=== PATIENT | female | born 1930 | race Asian ===

== ENCOUNTER 2016-04-22 14:52 | Inpatient (IN) | payer MEDICARE, OTHER ==
[~2016-04-22] VITALS: Ht 152.4 cm; Wt 71.2 kg
[~2016-04-22 14:52] MED LIST: AMLO-147 PO; DENO60DI SQ; OMEP40CA6 PO; PRAV20TA63 PO
[2016-04-22] MEDS ORDERED: ASPIRIN 81 MG TAB PO STA (15:36)
[2016-04-22] MEDS ORDERED: LIDOCAINE/MYLANTA 40 ML BTL PO STA (15:36)
[2016-04-22] MEDS ORDERED: LEVO500T10 PO (15:54)
[2016-04-22 15:55] LABS: BASOPHIL # 0.1 10^3/ul (0.0-0.1); BASOPHILS % 0.5 % (0.0-2.0); EOSINOPHILS % 0.3 % (0.0-7.0); HEMOGLOBIN 15.5 g/dl (12.0-16.0); LYMPHOCYTES # 2.1 10^3/ul (0.8-2.9); LYMPHOCYTES % 23.4 % (15.0-51.0); MEAN CORPUSCULAR HEMOGLOBIN 29.3 pg (29.0-33.0); MEAN CORPUSCULAR HGB CONC 32.9 g/dl (32.0-37.0); MEAN PLATELET VOLUME 6.9 fl (7.4-10.4); MONOCYTE # 0.6 10^3/ul (0.3-0.9); MONOCYTES % 6.1 % (0.0-11.0); NEUTROPHIL # 6.4 10^3/ul (1.6-7.5); NEUTROPHILS % 69.7 % (39.0-77.0); PLATELET COUNT 266 10^3/UL (140-440); RED BLOOD COUNT 5.28 10^6/ul (4.20-5.40); RED CELL DISTRIBUTION WIDTH 13.3 % (11.5-14.5); UNCORRECTED WBC 9.1 10^3/ul (4.8-10.8); WHITE BLOOD COUNT 9.1 10^3/ul (4.8-10.8)
[2016-04-22 15:57] LABS: CONDITION 1
[2016-04-22] MEDS ORDERED: ALBU18HF INHALATION (15:58)
--- NOTE | 2016-04-22 15:58 | RADRPT ---
PROCEDURE: Chest x-ray CLINICAL INDICATION: Focal neurologic deficit TECHNIQUE: Chest single view COMPARISON: None FINDINGS: There is moderate cardiomegaly and atherosclerotic aortic calcification. The pulmonary vessels are normal in caliber. The lungs are clear. The costophrenic angles are sharp. The visualized bony th orax is unremarkable. IMPRESSION: No acute cardiopulmonary disease. Moderate cardiomegaly and atherosclerotic aortic calcification RPTAT: HH .Nasir Alaniz MD, MD Date Time Electronically viewed and signed by .Nasir Alaniz MD, on 04/22/2016 15:58 .W/
[2016-04-22] MEDS ORDERED: MED4DP PO (15:59)
[2016-04-22] MEDS ORDERED: MECLIZINE 12.5 MG TAB PO ONE (16:00)
[2016-04-22 16:04] LABS: CHLORIDE 96 mmol/L (97-110); POTASSIUM 3.4 mmol/L (3.5-5.1); SODIUM 139 mmol/L (135-144)
[2016-04-22 16:05] LABS: INR 0.93; PARTIAL THROMBOPLASTIN TIME 24.4 Sec (25.0-35.0); PROTIME 12.5 Sec (12.2-14.2)
[2016-04-22 16:06] LABS: ALBUMIN/GLOBULIN RATIO 1.11; ALKALINE PHOSPHATASE 94 IU/L (42-121); ANION GAP 19 (8-16); ASPARTATE AMINO TRANSFERASE 37 IU/L (15-46); BILIRUBIN,INDIRECT 0.6 mg/dl (0-1.1); BILIRUBIN,TOTAL 0.6 mg/dl (0.2-1.3); CARBON DIOXIDE 27 mmol/L (21-31); CREATININE 0.65 mg/dl (0.44-1.00); TOTAL PROTEIN 9.5 g/dl (6.1-8.1)
[2016-04-22 16:07] LABS: ALANINE AMINOTRANSFERASE 40 IU/L (13-69); BLOOD UREA NITROGEN 16 mg/dl (7-20); GLUCOSE 110 mg/dl (70-220)
[2016-04-22 16:22] LABS: TROPONIN-I < 0.012 ng/ml (0.00-0.12)
--- NOTE | 2016-04-22 16:53 | RADRPT ---
PROCEDURE: CT Brain without contrast. CLINICAL INDICATION: Neurologic deficit TECHNIQUE: A CT of the brain was performed on multidetector high-resolution CT scanner utilizing a xial sections from the skull base through the vertex without contrast. One or more of the following dose reduction techniques were used: Automated exposure control, Adjustment of the mA and/or kV acc ording to patient size, and/or use of iterative reconstruction technique. DOSE: CTDI = 45 mGy and the DLP = 720 mGy-cm. COMPARISON: Head CT 03/11/2014 FINDINGS: 1.6cm metallic structure at the left occipital condyle is similar to prior. There is resulting in s treak artifact obscuring the foramen magnum. No acute intracranial hemorrhage, significant mass effe ct or midline shift. The lee-white differentiation is grossly preserved. The ventricles are stable size with mild to moderate volume loss noted. No significant opacification of the visualized paranas al sinuses or mastoids. IMPRESSION: No significant interval change identified since 03/11/2014. No acute intracranial abnormality identified. 1.6cm metallic structure at the left occipital condyle is similar to prior. RPTAT: AA .Michael Cordova MD, MD Date Time Electronically viewed and signed by .Michael Cordova MD, MD on 04/22/2016 16:52 .T/
--- NOTE | 2016-04-22 17:06 | ERA ---
ER Documentation Chief Complaint Date/Time DATE: 04/22/16 TIME: 17:00 Chief Complaint PALPITATIONS AND NAUSEA AND VOMITING SINCE LAST NIGHT. DIZZINESS HPI This is an 86-year-old female who complains this morning she developed sudden severe vertigo with nausea vomiting. She says the vertigo gets worse when she moves her head. She says she also this morning developed heaviness to the right lower extremity with some slight tingling. She said her face is not numb or weak but that she was having slurred speech according to her family. The slurred speech is now resolved. Patient says her leg is the same. No upper extremity symptoms. Patient is not sure the time of onset but says it was " this morning ROS All systems reviewed and are negative except as per history of present illness. Medications Home Meds Reported Medications Methylprednisolone* (Medrol* DOSE PACK) 4 Mg/Dose-Pack Tab.ds.pk, 4 MG PO . DIRECTED, PACKET 04/22/16 Albuterol Sulfate* (Ventolin HFA*) 18 Gm Hfa.aer.ad, 2 PUFF INHALATION Q4H, #1 INHALER 04/22/16 Levofloxacin* (Levofloxacin*) 500 Mg Tablet, 500 MG PO Q24H, TAB FOR 7 DAYS 04/22/16 Discontinued Reported Medications Amlodipine Besylate* (Amlodipine Besylate*) 10 Mg Tablet, 10 MG PO DAILY, TAB 03/11/14 Pravastatin Sodium* (Pravastatin Sodium*) 20 Mg Tablet, 20 MG PO HS, TAB 03/11/14 Denosumab (Prolia) 60 Mg/1 Ml Disp.syrin, 60 MG SQ 10/23/12 Omeprazole* (Omeprazole*) 40 Mg Capsule.dr, 40 MG PO 10/23/12 Allergies Allergies: Uncoded Allergies: ACETAMINOPHEN WITH CODEINE (Adverse Reaction, Unknown, 04/22/16) PMhx/Soc History of Surgery: Yes (EMBOLIZATION CRANIAL, CATARACT) Anesthesia Reaction: No Hx Neurological Disorder: No Hx Respiratory Disorders: Yes (Asthma) Hx Cardiac Disorders: No Hx Psychiatric Problems: No Hx Miscellaneous Medical Probl: Yes (Recent pneumonia) Hx Alcohol Use: No Hx Substance Use: No Hx Tobacco Use: No Smoking Status: Never smoker FmHx Family History: No coronary disease Physical Exam Vitals Vital Signs Date Time Temp Pulse Resp B/P Pulse Ox O2 Delivery O2 Flow Rate FiO2 04/22/16 15:47 Nasal Cannula 2 04/22/16 15:00 98.6 67 20 134/65 98 Physical Exam Const: Well-developed, well-nourished Head: Atraumatic, normocephalic Eyes: Normal Conjunctiva, PERRLA, EOMI, normal sclera, no nystagmus ENT: Normal External Ears, Nose and Mouth, moist mucus membranes. Neck: Full range of motion. No meningismus, no lymphadenopathy. Resp: Clear to auscultation bilaterally, no wheezing, rhonchi, rales Cardio: Regular rate and rhythm, no murmurs, S1 S2 present Abd: Soft, non tender x 4, non distended. Normal bowel sounds, no guarding or rebound, no pulsitile abdominal masses or bruits Skin: No petechiae or rashes, no ecchymosis , no maculopapular rash Back: No midline or flank tenderness Ext: No cyanosis, or edema, FROM x 4, normal inspection, neurovascularly intact x 4 Neur: Awake and alert, STR 5/5 x 4, sensation intact x 4, no focal findings, cerebellum intact, positive Hallpike, subjective heaviness to the right lower extremity with slight increase sensation/tingling Psych: Normal Mood and Affect Result Diagram: 04/22/16 1546 04/22/16 1546 Results 24 hrs Laboratory Tests Test 04/22/16 15:46 Activated Partial Thromboplast Time 24.4Sec Alanine Aminotransferase (ALT/SGPT) 40IU/L Albumin 5.0g/dl Albumin/Globulin Ratio 1.11 Alkaline Phosphatase 94IU/L Anion Gap 19 Aspartate Amino Transf (AST/SGOT) 37IU/L Basophils # 0.110^3/ul Basophils % 0.5% Blood Morphology Comment Blood Urea Nitrogen 16mg/dl Calcium Level 10.0mg/dl Carbon Dioxide Level 27mmol/L Chloride Level 96mmol/L Creatinine 0.65mg/dl Direct Bilirubin 0.00mg/dl Eosinophils # 0.010^3/ul Eosinophils % 0.3% Globulin 4.50g/dl Glucose Level 110mg/dl Hematocrit 47.0% Hemoglobin 15.5g/dl INR International Normalized Ratio 0.93 Indirect Bilirubin 0.6mg/dl Lymphocytes # 2.110^3/ul Lymphocytes % 23.4% Mean Corpuscular Hemoglobin 29.3pg Mean Corpuscular Hemoglobin Concent 32.9g/dl Mean Corpuscular Volume 89.0fl Mean Platelet Volume 6.9fl Monocytes # 0.610^3/ul Monocytes % 6.1% Neutrophils # 6.410^3/ul Neutrophils % 69.7% Nucleated Red Blood Cells # 0.010^3/ul Nucleated Red Blood Cells % 0.0/100WBC Platelet Count 31647^3/UL Potassium Level 3.4mmol/L Prothrombin Time 12.5Sec Prothrombin Time Ratio 1.0 Red Blood Count 5.2810^6/ul Red Cell Distribution Width 13.3% Sodium Level 139mmol/L Total Bilirubin 0.6mg/dl Total Protein 9.5g/dl Troponin I < 0.012ng/ml White Blood Count 9.110^3/ul Current Medications Medications (Trade) Dose Ordered Sig/Bravo Route PRN Reason Start Time Stop Time Status Last Admin Dose Admin Aspirin (Aspirin) 162 mg ONCE STAT PO 04/22/16 15:36 04/22/16 15:38 DC 04/22/16 15:46 Meclizine HCl (Antivert) 25 mg ONCE ONCE PO 04/22/16 16:00 04/22/16 16:01 DC 04/22/16 15:46 Miscellaneous Medication (Gi Cocktail (2)) 40 ml ONCE STAT PO 04/22/16 15:36 04/22/16 15:38 DC 04/22/16 15:46 Procedures/MDM PROCEDURE: CT Brain without contrast. CLINICAL INDICATION: Neurologic deficit TECHNIQUE: A CT of the brain was performed on multidetector high-resolution CT scanner utilizing axial sections from the skull base through the vertex without contrast. One or more of the following dose reduction techniques were used: Automated exposure control, Adjustment of the mA and/or kV according to patient size, and/or use of iterative reconstruction technique. DOSE: CTDI = 45 mGy and the DLP = 720 mGy-cm. COMPARISON: Head CT 03/11/2014 FINDINGS: 1.6cm metallic structure at the left occipital condyle is similar to prior. There is resulting in streak artifact obscuring the foramen magnum. No acute intracranial hemorrhage, significant mass effect or midline shift. The lee- white differentiation is grossly preserved. The ventricles are stable size with mild to moderate volume loss noted. No significant opacification of the visualized paranasal sinuses or mastoids. IMPRESSION: No significant interval change identified since 03/11/2014. No acute intracranial abnormality identified. 1.6cm metallic structure at the left occipital condyle is similar to prior. RPTAT: AA .Michael Cordova MD, MD Date Time Electronically viewed and signed by .Michael Cordova MD, MD on 04/22/2016 16:52 .T/ CC: RONNELL ALBA DO PROCEDURE: Chest x-ray CLINICAL INDICATION: Focal neurologic deficit TECHNIQUE: Chest single view COMPARISON: None FINDINGS: There is moderate cardiomegaly and atherosclerotic aortic calcification. The pulmonary vessels are normal in caliber. The lungs are clear. The costophrenic angles are sharp. The visualized bony thorax is unremarkable. IMPRESSION: No acute cardiopulmonary disease. Moderate cardiomegaly and atherosclerotic aortic calcification RPTAT: HH .Nasir Alaniz MD, Date Time Electronically viewed and signed by .Nasir Alaniz MD, MD on 04/22/2016 15:58 .W/ CC: RONNELL ALBA DO EKG: Rate/Rhythm: Normal sinus rhythm with a first-degree AV block, right bundle branch block QRS, ST, QT: NORMAL VA, prolonged QRS, QT] Impression: Abnormal EKG] Patient's symptoms are consistent with the peripheral vertigo however she has some right leg tingling and heaviness as well as some slurred speech, therefore there is a possibility of a stroke I will admit her for MRI and further stroke workup She is not a TPA candidate due to time of onset and improving symptoms Departure Diagnosis: Primary Impression: CVA (cerebral vascular accident) Qualified Code: I63.9 - Cerebrovascular accident (CVA), unspecified mechanism Condition: RONNELL Hernández DO Apr 22, 2016 17:06
[2016-04-22] MEDS ORDERED: SOD CHLORIDE 0.9% 1,000 ML IV SCH (18:43)
[2016-04-22] MEDS ORDERED: DOCUSATE SODIUM 100 MG CAP PO PRN (19:00)
[2016-04-22] MEDS ORDERED: ACETAMINOPHEN 325 MG TAB PO PRN ×2 (19:00)
[2016-04-22] MEDS ORDERED: NACL 0.9% 3 ML SYG IV SCH (19:00)
[2016-04-22] MEDS ORDERED: ZOLPIDEM 5 MG TAB PO PRN (19:00)
[2016-04-22] MEDS ORDERED: POTASSIUM CHLORIDE 50 ML IVPB SCH (19:00)
[2016-04-22] MEDS ORDERED: ONDANSETRON 4 MG INJ IV PRN ×2 (19:00)
[2016-04-22 19:47] VITALS: PULSE 85; TEMP 98.6
[2016-04-22 21:10] VITALS: BP 146/69; RESP 18
[2016-04-22] MEDS: MECLIZINE 12.5 MG TAB PO SCH (21:30)
[2016-04-22] MEDS: ATENOLOL 25 MG TAB PO SCH (21:30)
[2016-04-22] MEDS: AMLODIPINE 5 MG TAB PO SCH (21:30)
[2016-04-22] MEDS: POTASSIUM CHLORIDE 50 ML IVPB SCH (22:36)
[2016-04-22] MEDS: PANTOPRAZOLE 40 MG INJ IV SCH (22:36)
[2016-04-23] MEDS: POTASSIUM CHLORIDE 50 ML IVPB SCH ×2 (00:31→02:24)
--- NOTE | 2016-04-23 00:43 | HP ---
DATE OF ADMISSION: 04/22/2016 IDENTIFYING DATA: The patient is an 86-year-old female admitted to the hospital with dizziness and vomiting of approximately 10 hours' duration. HISTORICAL EVENTS: The patient had been seen by me in the office on 04/16 when she presented with s ymptoms of asthmatic bronchitis, onset about 10 days ago, and for this she was given Levaquin 500 mg per day, Medrol Dosepak and ProAir inhaler. She felt actually quite better over the last several d ays, was a bit queasy last night and when awakened this morning noted some nausea. She did eat deon kfast, perhaps 30 minutes after breakfast had several episodes of vomiting. Just prior to vomiting, she noted some dizziness and some generalized tingling without pathologic visual symptoms, difficul ty swallowing. No definite headache. She remained nauseated for several hours subsequent and noted some discomfort involving her right thigh and leg as well as low back pain with right SI discomfort that has been problematic perhaps for the last week or two and became somewhat worse this morning. Importantly, her cough and chest congestion markedly improved. She's had no wheezing, fever or chi lls. PRESENT MEDICATIONS: Include: 1. Levaquin 500 mg per day. 2. Medrol Dosepak, having 1 more day to complete. 3. Pravachol 20 mg per day. 4. Atenolol 25 mg per day. 5. Norvasc 10 mg per day. PAST MEDICAL HISTORY: Includes: 1. Hypertension. 2. Hyperlipidemia. 3. 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 4. Stress echo in 07/2013 that was normal. Holter monitor revealed PVCs not sustained. 5. History of osteoporosis. Prolia began in 06/2011. 6. Endoscopy and colonoscopy in 05/2012 that were normal. 7. History of GERD. 8. Microhematuria. Urologic evaluation in 06/2012 was negative. 9. History of a fall in 12/2013. CT scan of the brain was negative as was carotid study in 04/2014 . ALLERGIES OR INTOLERANCES: INCLUDE TRAMADOL. FAMILY HISTORY: Positive for pancreatic cancer. SOCIAL HISTORY: She does not smoke. in 2001. Does not drink alcohol. PHYSICAL EXAMINATION: GENERAL: Anxious female. No acute distress. VITAL SIGNS: BP 128/80, pulse 70, respirations were 20, she was afebrile. EYES: Extraocular muscles were full. No nystagmus was present. NOSE, MOUTH AND THROAT: Normal. NECK: Supple. There was no jugular venous distention, thyroid enlargement, adenopathy. LUNGS: Clear. HEART: Rhythm regular. No murmur. No third or fourth sound. ABDOMEN: Nontender. Liver and spleen were not palpable. No mass or tenderness was noted. EXTREMITIES: No edema, no calf tenderness, no lateralizing motor weakness of her extremities. IMPRESSION: Antecedent dizziness and vomiting may be related to eustachian tube dysfunction. Doubt Levaquin, doubt transient ischemic attack involving the brainstem or cerebellum. PLAN: Aspirin has already been given. Will observe her overnight. Antivert will also be given. M RI of the brain and noninvasive carotid studies to be obtained. Neurology to see tomorrow. Dictated By: ARIS LOPEZ/MICHAEL Conf#: [id number] DID#: [id number]
[2016-04-23] MEDS: 1/2 NS + KCL 20 MEQ 1,000 ML IV SCH ×3 (02:23→23:05)
[2016-04-23 06:18] LABS: POTASSIUM 3.9 mmol/L (3.5-5.1)
[2016-04-23 06:21] LABS: CALCIUM 8.7 mg/dl (8.4-10.2); CREATININE 0.67 mg/dl (0.44-1.00); PHOSPHORUS 3.4 mg/dl (2.5-4.9)
[2016-04-23 06:22] LABS: MAGNESIUM 2.4 mg/dl (1.7-2.5)
[2016-04-23 06:35] LABS: BASOPHILS % 0.6 % (0.0-2.0); EOSINOPHILS % 0.7 % (0.0-7.0); HEMATOCRIT 41.6 % (37.0-47.0); HEMOGLOBIN 14.1 g/dl (12.0-16.0); LYMPHOCYTES # 1.4 10^3/ul (0.8-2.9); LYMPHOCYTES % 23.5 % (15.0-51.0); MEAN CORPUSCULAR HEMOGLOBIN 30.1 pg (29.0-33.0); MEAN CORPUSCULAR HGB CONC 33.7 g/dl (32.0-37.0); MEAN CORPUSCULAR VOLUME 89.1 fl (82.0-101.0); MEAN PLATELET VOLUME 7.1 fl (7.4-10.4); MONOCYTE # 0.5 10^3/ul (0.3-0.9); MONOCYTES % 8.8 % (0.0-11.0); NEUTROPHIL # 4.1 10^3/ul (1.6-7.5); NEUTROPHILS % 66.4 % (39.0-77.0); PLATELET COUNT 231 10^3/UL (140-440); RED BLOOD COUNT 4.67 10^6/ul (4.20-5.40); RED CELL DISTRIBUTION WIDTH 13.3 % (11.5-14.5); UNCORRECTED WBC 6.1 10^3/ul (4.8-10.8); WHITE BLOOD COUNT 6.1 10^3/ul (4.8-10.8)
[2016-04-23 06:56] LABS: CONDITION 1
[2016-04-23] MEDS: PANTOPRAZOLE 40 MG INJ IV SCH ×2 (06:57→17:35)
[2016-04-23 07:30] VITALS: BP 122/57; RESP 18
[2016-04-23] MEDS: AMLODIPINE 5 MG TAB PO SCH ×2 (08:31→21:00)
[2016-04-23] MEDS: MECLIZINE 12.5 MG TAB PO SCH ×3 (08:31→21:15)
[2016-04-23] MEDS: ASPIRIN (EC) 325 MG TAB PO SCH (08:31)
[2016-04-23] MEDS: ATENOLOL 25 MG TAB PO SCH (08:32)
--- NOTE | 2016-04-23 12:54 | PN ---
Date/Time of Note Date/Time of Note DATE: 04/23/16 TIME: 12:45 Assessment/Plan VTE Prophylaxis VTE Prophylaxis Intervention: ambulation Lines/Catheters IV Catheter Type (from Nrs): Saline Lock Assessment/Plan Chief Complaint/Hosp Course 1. Dizziness with nausea and vomiting is better , probably due to vertigo , will continue IV fluids and symptomatic meds . 2. She cannot have an MRI of brain because of brain coil 3. start PT . 4. acute bronchitis resolving . Problems: Subjective 24 Hr Interval Summary Free Text/Dictation She is feeling better today . She could not have MRI of brain because of a coil in her brain . Constitutional: improved, no complaints Cardiovascular: no complaints Gastrointestinal: no complaints Exam/Review of Systems Vital Signs Vitals Vital Signs Date Time Temp Pulse Resp B/P Pulse Ox O2 Delivery O2 Flow Rate FiO2 04/23/16 07:30 97.8 57 18 122/57 96 04/22/16 19:47 Room Air 04/22/16 15:47 2 Intake and Output 04/22/16 04/22/16 04/23/16 15:00 23:00 07:00 Intake Total 920 ml Balance 920 ml Exam Constitutional: alert, oriented, well developed ENMT: nl external ears & nose, nl lips & teeth, nl nasal mucosa & septum Respiratory: clear to auscultation, normal air movement Cardiovascular: regular rate and rhythm Musculoskeletal: nl extremities to inspection Neurological: IRONMOLDER II-XII intact, nl mental status, nl speech, nl strength Results Result Diagram: 04/23/16 0456 04/23/16 0456 Results 24 hrs Laboratory Tests Test 04/22/16 15:46 04/23/16 04:56 Activated Partial Thromboplast Time 24.4 L Alanine Aminotransferase (ALT/SGPT) 40 Albumin 5.0 H Albumin/Globulin Ratio 1.11 Alkaline Phosphatase 94 Anion Gap 19 H 14 Aspartate Amino Transf (AST/SGOT) 37 Basophils # 0.1 0.0 Basophils % 0.5 0.6 Blood Morphology Comment Blood Urea Nitrogen 16 17 Calcium Level 10.0 8.7 Carbon Dioxide Level 27 27 Chloride Level 96 L 101 Creatinine 0.65 0.67 Direct Bilirubin 0.00 Eosinophils # 0.0 0.0 Eosinophils % 0.3 0.7 Globulin 4.50 H Glucose Level 110 94 Hematocrit 47.0 41.6 Hemoglobin 15.5 14.1 INR International Normalized Ratio 0.93 Indirect Bilirubin 0.6 Lymphocytes # 2.1 1.4 Lymphocytes % 23.4 23.5 Mean Corpuscular Hemoglobin 29.3 30.1 Mean Corpuscular Hemoglobin Concent 32.9 33.7 Mean Corpuscular Volume 89.0 89.1 Mean Platelet Volume 6.9 L 7.1 L Monocytes # 0.6 0.5 Monocytes % 6.1 8.8 Neutrophils # 6.4 4.1 Neutrophils % 69.7 66.4 Nucleated Red Blood Cells # 0.0 0.0 Nucleated Red Blood Cells % 0.0 0.0 Platelet Count 266 231 Potassium Level 3.4 L 3.9 Prothrombin Time 12.5 Prothrombin Time Ratio 1.0 Red Blood Count 5.28 4.67 Red Cell Distribution Width 13.3 13.3 Sodium Level 139 138 Total Bilirubin 0.6 Total Protein 9.5 H Troponin I < 0.012 White Blood Count 9.1 6.1 # Magnesium Level 2.4 Phosphorus Level 3.4 Medications Medications Current Medications Potassium Chloride/Sodium Chloride (04/05 NS + KCl 20 Meq) 1,000 ml @ 100 mls/hr Q10H IV Last administered on 04/23/16 09:06; Admin Dose 100 MLS/HR; Start at 22:00 Ondansetron HCl (Zofran Inj) 4 mg Q6H PRN IV NAUSEA AND/OR VOMITING; Start at 19:00 Acetaminophen (Tylenol Tab) 650 mg Q6H PRN PO PAIN LEVEL 1-3 OR FEVER; Start at 19:00 Docusate Sodium (Colace) 100 mg Q12H PRN PO CONSTIPATION; Start 04/22/16 at 19: 00 Meclizine HCl (Antivert) 12.5 mg TID PO ; Start 04/22/16 at 21:30 Pantoprazole (Protonix Iv) 40 mg BID@06,18 IV Last administered on 04/23/16 06 :57; Admin Dose 40 MG; Start 04/22/16 at 21:30 Amlodipine Besylate (Norvasc) 5 mg BID PO ; Start 04/22/16 at 21:30 Atenolol (Tenormin) 25 mg DAILY PO ; Start 04/22/16 at 21:30 Zolpidem Tartrate (Ambien) 5 mg HS PRN PO INSOMNIA; Start 04/22/16 at 19:00 Aspirin (Ecotrin) 325 mg DAILY PO ; Start 04/23/16 at 09:00 REGINO RAHMAN MD Apr 23, 2016 12:54
--- NOTE | 2016-04-23 13:51 | RADRPT ---
PROCEDURE: US Carotids. CLINICAL INDICATION: CVA TECHNIQUE: Multiple sonographic of the carotid arteries were obtained utilizing lee scale imaging . Color and Doppler imaging was performed. The images were reviewed on a PACS workstation. COMPARISON: No prior studies are available for comparison. FINDINGS: Location Right Left CCA 54 cm/sec 61 cm/sec Prox ICA 45 cm/sec 62 cm/sec Mid ICA 59 cm/sec 69 cm/sec Dist ICA 68 cm/sec 78 cm/sec ECA 81 cm/sec 47 cm/sec ICA/CCA 1.3 1.4 Antegrade flow is seen within the vertebral arteries bilaterally. Mild scattered atherosclerotic alesha que is seen within the carotid system bilaterally. No hemodynamically significant stenosis or occlu franca is identified. IMPRESSION: 1. Mild scattered atherosclerotic plaque without evidence for hemodynamically significant stenosis - validated velocity measurements with angiographic measurements, velocity criteria are extrapolated from diameter data as defined by the Society of Radiologists in Ultrasound Consensus Conference Radi ology 2003; 229;340-346. This study does indirectly reference the measurement of the distal ICA kati meter as the denominator for stenosis measurement. 2. Antegrade flow seen within the vertebral arteries bilaterally. SRU Consensus Conference Criteria for the Diagnosis of Carotid Artery Stenosis Degree of Stenosis, % ICA PSV, cm/sec Plaque Estimate, % ICA/CCA PSV Ratio Normal <125 None <2.0 <50 <125 <50 <2.0 50 69 125-230 >50 2.0-4.0 >70 but less than near occlusion >230 >50 <4.0 Near occlusion High, low, or undetectable Visible Variable Total occlusion Undetectable Visible, no detectable lumen Not applicable *Cartoid artery stenosis: lee-scale and Doppler US diagnosis. Society of Radiologists in Ultrasound Consensus Conference. Radiology 2003; 229: 340-346 RPTAT: TT .Marvel Woods MD, Date Time Electronically viewed and signed by .Marvel Woods MD, MD on 04/23/2016 13:51 .A/
--- NOTE | 2016-04-23 16:17 | RADRPT ---
Echocardiogram Report Patient Name: ARUN MCINTYRE Gender: Female Date: 1930 Study Date: 23-Apr-2016 Core Java Software Engineer: [facility] Location: 2265 Ref. Physician: ARIS CHAVEZ Quality: Adequate Procedures: Transthoracic echocardiogram with complete 2D, M-Mode, and doppler examination. Indications: CEREBRAL EMBOLISM. 2D/M Mode Doppler Measurement Value Normal Ranges Measurement Value Normal Ranges LVIDd 2D 3.7 3.5 - 5.6 cm AV Peak Duran 1.4 m/sec LVIDs 2D 2.5 2.1 - 4.1 cm AV Peak PG 8.0 mmHg FS 2D 34.0 % AI Peak PG 35.0 mmHg LVPWd 2D 1.2 0.6 - 1.1 cm AI Peak Duran 3.0 m/sec IVSd 2D 1.1 0.6 - 1.1 cm AI PHT 1097.0 msec IVS/LVPW 2D 0.9 LVOT Peak Duran 0.8 m/sec AoR Diam 2D 3.1 2.0 - 3.7 cm LVOT Peak PG 2.0 mmHg LA/Ao 2D 1 0 - 1 MV E Peak Duran 0.4 m/sec EDV 2D 52.3 cm3 MV A Peak Duran 0.9 m/sec ESV 2D 15.1 cm3 MV E/A 0.4 LA Dimen 2D 3.0 2.3 - 4.0 cm MV Decel Time 215 msec MV E/A 0.4 TR Peak Duran 2.6 m/sec TR Peak PG 27.0 mmHg Findings Left Ventricle: Normal left ventricular systolic function. Normal left ventricular cavity size. Left ventricular wall thickness upper limits of normal. Ejection fraction is visually estimated at 60 %. Tissue Doppler/Mitral Doppler indices are consistent with impaired relaxation (Stage I diastolic dysfunction). Right Ventricle: Normal right ventricular systolic function. Mild enlargement of right ventricle. Left Atrium: The left atrium is normal in size. Right Atrium: Right atrium at upper limits of normal. Mitral Valve: Normal appearance of the mitral valve. Mild mitral annular calcification. Trace mitral regurgitation. Aortic Valve: No hemodynamically significant aortic stenosis by doppler. Aortic cusps appear mildly calcified. Trileaflet aortic valve. Mild aortic valve regurgitation. Tricuspid Valve: Right ventricular systolic pressure is consistent with mild pulmonary hypertension. Estimated peak PA systolic pressure 30 mmHg. There is mild tricuspid regurgitation. Pulmonic Valve: Pulmonic valve not well visualized. There is trace pulmonic regurgitation. Pericardium: Normal pericardium with no significant pericardial effusion. Aorta: Normal aortic root. IVC: Normal size and normal respiratory collapse consistent with normal right atrial pressure. Conclusions Normal left ventricular systolic function. Normal left ventricular cavity size. Left ventricular wall thickness upper limits of normal. Ejection fraction is visually estimated at 60 %. Tissue Doppler/Mitral Doppler indices are consistent with impaired relaxation (Stage I diastolic dysfunction). Normal right ventricular systolic function. Mild enlargement of right ventricle. The left atrium is normal in size. No hemodynamically significant aortic stenosis by doppler. Aortic cusps appear mildly calcified. Trileaflet aortic valve. Mild aortic valve regurgitation. Right ventricular systolic pressure is consistent with mild pulmonary hypertension. Estimated peak PA systolic pressure 30 mmHg. There is mild tricuspid regurgitation. Normal size and normal respiratory collapse consistent with normal right atrial pressure. No Vegetation, masses, or thrombi seen. Electronically Signed By: Praomd Mosher 23-Apr-2016 16:16:47 -0800 Patient Name: ARUN MCINTYRE Study Date: 23-Apr-[id number]
[2016-04-23 20:09] VITALS: BP 117/53; RESP 20
[2016-04-24] MEDS: PANTOPRAZOLE 40 MG INJ IV SCH (04:38)
[2016-04-24] MEDS: 1/2 NS + KCL 20 MEQ 1,000 ML IV SCH (04:39)
[2016-04-24 06:07] LABS: POTASSIUM 4.8 mmol/L (3.5-5.1)
[2016-04-24 06:10] LABS: CREATININE 0.84 mg/dl (0.44-1.00)
[2016-04-24 06:11] LABS: CALCIUM 8.9 mg/dl (8.4-10.2); MAGNESIUM 2.5 mg/dl (1.7-2.5)
[2016-04-24 08:17] VITALS: BP 147/67; RESP 20
[2016-04-24] MEDS: ASPIRIN (EC) 325 MG TAB PO SCH (08:26)
[2016-04-24] MEDS: MECLIZINE 12.5 MG TAB PO SCH ×2 (08:26→12:52)
[2016-04-24] MEDS: ATENOLOL 25 MG TAB PO SCH (08:27)
[2016-04-24] MEDS: AMLODIPINE 5 MG TAB PO SCH ×2 (08:27→21:00)
[2016-04-24] MEDS ORDERED: MECLIZINE 12.5 MG TAB PO PRN (13:30)
[2016-04-24] MEDS ORDERED: PANTOPRAZOLE (EC) 40 MG TAB PO ONE (13:30)
--- NOTE | 2016-04-24 13:46 | PN ---
Date/Time of Note Date/Time of Note DATE: 04/24/16 TIME: 13:34 Assessment/Plan VTE Prophylaxis VTE Prophylaxis Intervention: ambulation, SCD's Lines/Catheters IV Catheter Type (from Nrsg): Peripheral IV Assessment/Plan Chief Complaint/Hosp Course 86 y/o female pmh HTN, HLD, GERD, osteoporosis who was brought to ER from her assisted living 04/22/2016 for recurrent episodes of vomiting and vertigo. Of note she was seen by Dr. Stevenson 04/16 for asthmatic bronchitis and prescribed levaquin 500mg po qday as well as medrol dose pack and inhaler. Since admission patient has been managed supportively. Had contraindication to MRI given brain coil. CT head unchanged from prior. Carotid doppler w/ no clinically significant stenosis. Problems: (1) Vertigo (2) GERD (gastroesophageal reflux disease) (3) Hyperlipidemia (4) Hypertension (5) Right hip pain Assessment/Plan A/P: Neuro #Vertigo-improved. These symptoms were intermittent therefore unlikely central. No hearing loss or tinnitus. Consider vestibular neuritis as part of a viral syndrome. Symptoms are almost resolved. -will change meclizine from ATC to prn -will advance diet and continue to observe today MSK #R hip pain-likely OA vs other MSK. Doesnt hurt when walking. Skin intact -tylenol prn -out of bed as much as possible today GI #GERD -will switch PPI gtt to protonix po qday Cards #HLD -restart pravachol #HTN -norvasc -atenolol Dispo: tentative dc to assisted living tomorrow. PAtient lives alone, would like to ensure that she can tolerate diet and ambulate. Will also attempt to get PT mobility eval. Subjective 24 Hr Interval Summary Free Text/Dictation Patient doing well this am overall. She now only has very mild intermittent nausea. Vertigo resolved. Denies difficulty moving or feeling any part of body. Has mild pain in R hip, she has had for last week, worse since being here. She endorses that it is better when she is walking. She endorses hunger and would like to advance her diet to full. Wants to be back to her baselines before going back to her assisted living. Denies chest pain, sob, cough, diarrhea, constipation, difficulty urinating or abdominal pain. Exam/Review of Systems Vital Signs Vitals Vital Signs Date Time Temp Pulse Resp B/P Pulse Ox O2 Delivery O2 Flow Rate FiO2 04/24/16 08:17 97.7 80 20 147/67 97 04/22/16 19:47 Room Air 04/22/16 15:47 2 Intake and Output 04/23/16 04/23/16 04/24/16 15:00 23:00 07:00 Intake Total 1920 ml 710 ml Balance 1920 ml 710 ml Exam Gen: NAD, alert and oriented to person, place, time, and situation HEENT: op clear, MMM Chest: CTAB, no w/r/r Cards: rrr, nml s1/s2, no m/r/g Abd: soft, NT, ND, +BS Ext: no c/c/e, some vein varicosities in posterior lower limbs R hip with no tenderness to palpation, skin intact, no erythema Neuro: patient has stable gait when walking with her granddaughter. She was observed to [place] the [place] >2 times CN II-XII tested and intact. 5/5 MSK strength in bilateral upper and lower extremities. Constitutional: alert, oriented, well developed Psych: nl mood/affect, no complaints Head: atraumatic, normocephalic Eyes: EOMI, PERRL, nl conjunctiva, nl lids, nl sclera ENMT: nl external ears & nose, nl lips & teeth, nl nasal mucosa & septum Neck: non-tender, supple Respiratory: clear to auscultation, normal air movement Cardiovascular: nl pulses, regular rate and rhythm Gastrointestinal: nl liver, spleen, non-tender, soft Musculoskeletal: nl extremities to inspection, nl gait and stance Extremities: normal pulses Neurological: OVERSEAMER II-XII intact, nl mental status, nl speech, nl strength Skin: nl turgor, No rash or lesions Lymph: nl lymph nodes Results Result Diagram: 04/23/16 0456 04/24/16 0430 Results 24 hrs Laboratory Tests Test 04/24/16 04:30 Anion Gap 15 Blood Urea Nitrogen 17 Calcium Level 8.9 Carbon Dioxide Level 28 Chloride Level 107 Creatinine 0.84 Glucose Level 82 Magnesium Level 2.5 Potassium Level 4.8 Sodium Level 145 H Medications Medications Current Medications Ondansetron HCl (Zofran Inj) 4 mg Q6H PRN IV NAUSEA AND/OR VOMITING; Start at 19:00 Acetaminophen (Tylenol Tab) 650 mg Q6H PRN PO PAIN LEVEL 1-3 OR FEVER; Start at 19:00 Docusate Sodium (Colace) 100 mg Q12H PRN PO CONSTIPATION; Start 04/22/16 at 19: 00 Amlodipine Besylate (Norvasc) 5 mg BID PO Last administered on 04/24/16 08:27 ; Admin Dose 5 MG; Start 04/22/16 at 21:30 Atenolol (Tenormin) 25 mg DAILY PO Last administered on 04/24/16 08:27; Admin Dose 25 MG; Start 04/22/16 at 21:30 Zolpidem Tartrate (Ambien) 5 mg HS PRN PO INSOMNIA; Start 04/22/16 at 19:00 Aspirin (Ecotrin) 325 mg DAILY PO Last administered on 04/24/16 08:26; Admin Dose 325 MG; Start 04/23/16 at 09:00 Meclizine HCl 12.5 mg 12.5 mg TID PRN PO nausea/vertigo; Start 04/24/16 at 13: 30; Status UNV Dextrose/Sodium Chloride (D5-1/2ns) 1,000 ml @ 50 mls/hr Q20H IV ; Start at 13:30; Status UNV CHRIS KHAN MD Apr 24, 2016 13:46
[2016-04-24] MEDS: DEXTROSE 5%-0.45% NACL 1,000 ML IV SCH (14:23)
[2016-04-24 19:46] VITALS: BP 83/46; RESP 20
[2016-04-24 21:45] VITALS: BP 119/56
[2016-04-24] MEDS: ATORVASTATIN 10 MG TAB PO SCH (21:55)
[2016-04-25 06:15] LABS: POTASSIUM 4.2 mmol/L (3.5-5.1)
[2016-04-25 06:18] LABS: CREATININE 0.87 mg/dl (0.44-1.00)
[2016-04-25 08:03] VITALS: BP 123/58; RESP 21
[2016-04-25] MEDS: AMLODIPINE 5 MG TAB PO SCH ×2 (08:27→21:02)
[2016-04-25] MEDS: ASPIRIN (EC) 325 MG TAB PO SCH (08:27)
[2016-04-25] MEDS: ATENOLOL 25 MG TAB PO SCH (08:29)
[2016-04-25] MEDS: DEXTROSE 5%-0.45% NACL 1,000 ML IV SCH (11:49)
[2016-04-25] MEDS: PANTOPRAZOLE (EC) 40 MG TAB PO SCH (11:49)
--- NOTE | 2016-04-25 12:29 | PN ---
Date/Time of Note Date/Time of Note DATE: 04/25/16 TIME: 12:20 Assessment/Plan VTE Prophylaxis VTE Prophylaxis Intervention: ambulation, SCD's Lines/Catheters IV Catheter Type (from Nrs): Peripheral IV Assessment/Plan Chief Complaint/Hosp Course 86 y/o female pmh HTN, HLD, GERD, osteoporosis who was brought to ER from her assisted living 04/22/2016 for recurrent episodes of vomiting and vertigo. Of note she was seen by Dr. Stevenson 04/16 for asthmatic bronchitis and prescribed levaquin 500mg po qday as well as medrol dose pack and inhaler. Since admission patient has been managed supportively. Had contraindication to MRI given brain coil. CT head unchanged from prior. Carotid doppler w/ no clinically significant stenosis. Problems: (1) Hyperlipidemia (2) Vertigo (3) GERD (gastroesophageal reflux disease) (4) Hypertension (5) Right hip pain Assessment/Plan A/P: Neuro #Vertigo-resolved, These symptoms were intermittent therefore unlikely central. No hearing loss or tinnitus. Consider vestibular neuritis as part of a viral syndrome. -meclizine prn -PT eval MSK #R hip pain-likely OA vs other MSK. Doesnt hurt when walking. Improved -tylenol prn -out of bed as much as possible today GI #GERD -protonix po -will switch asa 325 to 81 Cards #HLD -atorva 10 #HTN -norvasc -atenolol Dispo: tentative dc to assisted living tomorrow. Patient has not yet been evaluated by PT. Still has mild nausea. Also will not have any help at assisted living if she goes today as her family is busy. Subjective 24 Hr Interval Summary Free Text/Dictation Patient continues to feel better. Mild nausea today but has not required meclizine for 24 hours. She has been tolerating general diet well. No vomiting. No fevers or chills. No vertigo. No chest pain or sob. No cough. Denies abdominal pain or constipation. Has been ambulating well. Has not had PT eval yet. She does endorse heart burn since yesterday qualified as mid epigastric burning sensation. Exam/Review of Systems Vital Signs Vitals Vital Signs Date Time Temp Pulse Resp B/P Pulse Ox O2 Delivery O2 Flow Rate FiO2 04/25/16 08:03 97.6 60 21 123/58 98 04/22/16 19:47 Room Air 04/22/16 15:47 2 Intake and Output 04/24/16 04/24/16 04/25/16 15:00 23:00 07:00 Intake Total 1100 ml 580 ml Balance 1100 ml 580 ml Exam Gen: NAD, alert and oriented to person, place, time, and situation HEENT: op clear, MMM Chest: CTAB, no w/r/r Cards: rrr, nml s1/s2, no m/r/g Abd: soft, NT, ND, +BS Ext: no c/c/e, some vein varicosities in posterior lower limbs Neuro: CN II-XII grossly intact. Results Result Diagram: 04/23/16 0456 04/25/16 0436 Results 24 hrs Laboratory Tests Test 04/24/16 20:10 04/25/16 04:36 Bedside Glucose 176 Anion Gap 12 Blood Urea Nitrogen 20 Calcium Level 9.0 Carbon Dioxide Level 26 Chloride Level 107 Creatinine 0.87 Glucose Level 82 Potassium Level 4.2 Sodium Level 141 Medications Medications Current Medications Ondansetron HCl (Zofran Inj) 4 mg Q6H PRN IV NAUSEA AND/OR VOMITING; Start at 19:00 Acetaminophen (Tylenol Tab) 650 mg Q6H PRN PO PAIN LEVEL 1-3 OR FEVER Last administered on 04/24/16 21:55; Admin Dose 650 MG; Start 04/22/16 at 19:00 Docusate Sodium (Colace) 100 mg Q12H PRN PO CONSTIPATION; Start 04/22/16 at 19: 00 Amlodipine Besylate (Norvasc) 5 mg BID PO Last administered on 04/25/16 08:27 ; Admin Dose 5 MG; Start 04/22/16 at 21:30 Atenolol (Tenormin) 25 mg DAILY PO Last administered on 04/25/16 08:29; Admin Dose 25 MG; Start 04/22/16 at 21:30 Zolpidem Tartrate (Ambien) 5 mg HS PRN PO INSOMNIA; Start 04/22/16 at 19:00 Aspirin (Ecotrin) 325 mg DAILY PO Last administered on 04/25/16 08:27; Admin Dose 325 MG; Start 04/23/16 at 09:00 Meclizine HCl 12.5 mg 12.5 mg TID PRN PO nausea/vertigo; Start 04/24/16 at 13: 30 Dextrose/Sodium Chloride (D5-1/2ns) 1,000 ml @ 50 mls/hr Q20H IV Last administered on 04/25/16 11:49; Admin Dose 50 MLS/HR; Start 04/24/16 at 13:30 Atorvastatin Calcium (Lipitor) 10 mg HS PO Last administered on 04/24/16 21:55 ; Admin Dose 10 MG; Start 04/24/16 at 21:00 CHRIS KHAN MD Apr 25, 2016 12:29
[2016-04-25 20:10] VITALS: BP 113/58; RESP 16
[2016-04-25] MEDS: ATORVASTATIN 10 MG TAB PO SCH (21:02)
[2016-04-26 07:59] VITALS: BP 109/54; RESP 16
[2016-04-26] MEDS ORDERED: ASPIRIN (EC) 81 MG TAB PO SCH (09:00)
[2016-04-26] MEDS: AMLODIPINE 5 MG TAB PO SCH (09:00)
[2016-04-26] MEDS: ATENOLOL 25 MG TAB PO SCH (09:00)
[2016-04-26] MEDS: PANTOPRAZOLE (EC) 40 MG TAB PO SCH (11:20)
--- NOTE | 2016-04-26 14:06 | PDOCDIS ---
Discharge Instructions CONDITION Patient Condition: Good HOME CARE INSTRUCTIONS: Diet Instructions: Reduced SodiumSpecial Diet: Regular ACTIVITY: Activity Restrictions: Slowly Increase Activity Rest between Activity Avoid heavy lifting Do not Drive Weight Bearing Bathing Restrictions: Shower FOLLOW UP/APPOINTMENTS Appointments Dr Steevnson in 1 week REGINO RAHMAN MD Apr 26, 2016 14:06
--- NOTE | 2016-04-27 05:59 | DS ---
DATE OF ADMISSION: 04/22/2016 DATE OF DISCHARGE: 04/26/2016 HISTORY OF PRESENT ILLNESS AND HOSPITAL COURSE: This 86-year-old female is being discharged today. The patient was admitted last week after she developed dizziness with nausea and vomiting. The pat lynn was admitted through the emergency room. She did have an acute asthmatic bronchitis about 10 d ays prior to admission and was on Levaquin, Medrol Dosepak and ProAir inhaler. The patient is now f eeling well. The patient did have a CAT scan of the brain which was read as showing no significant interval change since 03/11/2014. No acute intracranial abnormality identified. There was 1.6 cm m etallic structure at the left occipital condyle which was similar to prior CAT scan. Because of thi s metal in the brain, the patient was unable to have an MRI of the brain. The patient had a carotid duplex scan which was read as showing mild scattered atherosclerotic plaque without evidence for he modynamically significant stenosis. The patient was to be seen by neurology; however, she was not seen by a neurologist. The patient im proved while in the hospital. It was felt that the patient had vertigo due to vestibular dysfunctio n. She was stable at the time of discharge and in good condition. The patient will be discharged home on the following medications: 1. Aspirin 81 mg a day. 2. Protonix 40 mg a day. 3. Atorvastatin 10 mg a day. 4. Antivert 12.5 mg 3 times a day p.r.n. dizziness. 5. Amlodipine 5 mg twice a day. 6. Atenolol 25 mg a day. 7. Tylenol p.r.n. pain. 8. Colace twice a day. FOLLOWUP: She will be seen in our office by her primary care physician, Dr. Stevenson. DISCHARGE DIAGNOSES: 1. Acute vestibular dysfunction with vertigo. 2. History of hypertension. 3. Hyperlipidemia. 4. Gastroesophageal reflux disease. Dictated By: REGINO RAHMAN MD, ND/MICHAEL Conf#: [id number] DID#: [id number]
== END 2016-04-26 15:10 | disposition home health service (06) | DRG 149 ==
LOC: E/R 14:52 → PP2 18:42 → INTOOBSV 18:42 → OBSVTOIN 18:42
PROVIDERS: ADMIT Internal Medicine; ATTEND Internal Medicine
DX: H81.13 Benign paroxysmal vertigo, bilateral (principal); I10 Essential (primary) hypertension; E78.5 Hyperlipidemia, unspecified; K21.9 Gastro-esophageal reflux disease without esophagitis; M81.0 Age-related osteoporosis without current pathological fracture; R11.2 Nausea with vomiting, unspecified; J45.909 Unspecified asthma, uncomplicated; M25.551 Pain in right hip; H81.23 Vestibular neuronitis, bilateral
CPT/HCPCS: 36415; 70450; 71010; 80048; 80053; 82962; 83735; 84100; 84484; 85025; 85610; 85730; 92610; 93005; 93306; 93880; 97163; C9113; J3480; J7030; J7042